=== PATIENT | female | born 1990 | race Caucasian/White ===

== ENCOUNTER 2017-09-25 20:03 | Inpatient (IN) | payer MEDICAID ==
[2017-09-25 20:41] LABS: Hematocrit 41 % (35-47); Hemoglobin 13.9 g/dl (12.0-16.0); Mean Corpuscular HGB Conc 34 g/dl (31-36); Mean Corpuscular Hemoglobin 31 pg (27-31); Mean Corpuscular Volume 90 fL (80-97); Mean Platelet Volume 9 um3 (7.4-10.4); Red Blood Count 4.57 10^6/ul (4.0-5.4); Red Cell Distribution Width 14 % (10.5-15); White Blood Count 11.8 10^3/ul (3.5-10.8)
[2017-09-25] MEDS ORDERED: OBEPIDURAL* 250 ML ONE (20:50)
[2017-09-25] MEDS ORDERED: Sodium Citrate/Citric Acid* 15 ML UDC PO PRN (21:50)
[2017-09-25] MEDS ORDERED: Famotidine TAB* 20 MG PO PRN (21:50)
[2017-09-25] MEDS ORDERED: EPHEDrine (Pressors)* 50 MG/ML VIAL IV PUSH PRN ×2 (21:50)
[2017-09-25] MEDS ORDERED: Phenylephrine IV* 40 MCG/ML 10 ML SYRINGE IV PUSH PRN ×2 (21:50)
[2017-09-25] MEDS ORDERED: OBEPIDURAL* 250 ML EPIDURAL SCH (22:00)
[2017-09-26] MEDS ORDERED: Oxytocin in LR* 20 UNITS/1,000 ML BAG IVPB ONE (05:29)
[2017-09-26] MEDS ORDERED: Dibucaine 1% 28.35 GM TUBE PR PRN (06:38)
[2017-09-26] MEDS ORDERED: Witch Hazel PAD* JAR TOPICAL PRN (06:38)
[2017-09-26] MEDS ORDERED: Glycerin ADULT SUPP PR PRN (06:38)
[2017-09-26] MEDS ORDERED: Oxytocin in LR* 20 UNITS/1,000 ML BAG IVPB SCH (07:00)
[2017-09-26] MEDS ORDERED: Simethicone TAB* 80 MG TAB.CHEW PO SCH (08:30)
[2017-09-26] MEDS: Docusate CAP* 100 MG PO SCH ×3 (13:08→21:37)
[2017-09-26] MEDS: Ibuprofen TAB* 600 MG PO PRN ×2 (13:09→18:54)
[2017-09-26] MEDS: Acetaminophen TAB* 325 MG PO PRN (21:36)
[2017-09-27] MEDS: Ibuprofen TAB* 600 MG PO PRN ×3 (00:59→20:47)
[2017-09-27] MEDS: Acetaminophen TAB* 325 MG PO PRN ×2 (04:15→12:38)
[2017-09-27] MEDS: Docusate CAP* 100 MG PO SCH ×3 (08:04→20:42)
[2017-09-27 08:09] LABS: Hematocrit 31 % (35-47); Hemoglobin 10.6 g/dl (12.0-16.0); Mean Corpuscular HGB Conc 35 g/dl (31-36); Mean Corpuscular Hemoglobin 32 pg (27-31); Mean Corpuscular Volume 91 fL (80-97); Mean Platelet Volume 9 um3 (7.4-10.4); Red Blood Count 3.35 10^6/ul (4.0-5.4); Red Cell Distribution Width 14 % (10.5-15); White Blood Count 9.1 10^3/ul (3.5-10.8)
[2017-09-27] MEDS ORDERED: Ferrous Gluconate TAB* 324 MG TAB PO SCH (09:00)
[2017-09-28] MEDS: Acetaminophen TAB* 325 MG PO PRN (02:14)
[2017-09-28 07:52] VITALS: BP 113/77
[2017-09-28] MEDS: Docusate CAP* 100 MG PO SCH (08:29)
[2017-09-28] MEDS: Ibuprofen TAB* 600 MG PO PRN (08:29)
== END 2017-09-28 10:15 | disposition home or self-care (01) | DRG 560 ==
LOC: MCHOBOUT 20:03 → MCHOB 20:35
PROVIDERS: ADMIT Midwife; ATTEND Midwife
PROC: 10E0XZZ Delivery of Products of Conception, External Approach (ICD-10-PCS; principal; 2017-09-26)
PROC: 0HQ9XZZ Repair Perineum Skin, External Approach (ICD-10-PCS; 2017-09-26)
DX: O99.334 Smoking (tobacco) complicating childbirth (principal); O99.344 Other mental disorders complicating childbirth; F17.210 Nicotine dependence, cigarettes, uncomplicated; O70.0 First degree perineal laceration during delivery; O69.81X0 Labor and delivery complicated by cord around neck, without compression, not applicable or unspecified; F41.8 Other specified anxiety disorders; O77.0 Labor and delivery complicated by meconium in amniotic fluid; Z3A.40 40 weeks gestation of pregnancy; Z37.0 Single live birth
CPT/HCPCS: 36415; 85025; 85027; 86850; 86900; 86901; A9270-GY

== ENCOUNTER 2019-07-28 13:23 | Emergency (ER) | payer OTHER ==
[2019-07-28 13:33] VITALS: BP 104/69
--- NOTE | 2019-07-28 13:51 | UC ---
Respiratory Complaint HPI - HPI Summary HPI Summary: She has had about a week of upper respiratory tract symptoms. Now she is mostly coughing which is productive. She is a smoker - History of Current Complaint Chief Complaint: UCRespiratory Stated Complaint: COUGH, AND SORE THROAT Time Seen by Provider: 07/28/19 13:35 Hx Obtained From: Patient Hx Last Menstrual Period: current Onset/Duration: Gradual Onset Timing: Constant Severity Initially: Mild Severity Currently: Moderate Pain Intensity: 7 Character: Cough: Productive Aggravating Factors: Nothing Alleviating Factors: Nothing Associated Signs And Symptoms: Positive: URI, Nasal Congestion. Negative: Dyspnea, Fever - Allergies/Home Medications Allergies/Adverse Reactions: Allergies Allergy/AdvReac Type Severity Reaction Status Date / Time sulfamethoxazole Allergy Hives/Diff. Verified 07/28/19 13:34 [From Bactrim] Breathing/I tching trimethoprim [From Bactrim] Allergy Hives/Diff. Verified 07/28/19 13:34 Breathing/I tching Home Medications: Home Medications NK [No Home Medications Reported] 07/28/19 [History Confirmed 07/28/19] PMH/Surg Hx/FS Hx/Imm Hx Previously Healthy: Yes - Surgical History Surgical History: None - Social History Alcohol Use: Occasionally Substance Use Type: None Smoking Status (MU): Current Some Day Smoker Type: Cigarettes Length of Time of Smoking/Using Tobacco: years Have You Smoked in the Last Year: No - Immunization History Most Recent Influenza Vaccination: none Most Recent Pneumonia Vaccination: none Review of Systems All Other Systems Reviewed And Are Negative: Yes Constitutional: Positive: Fever, Chills Skin: Positive: Rash Eyes: Positive: Negative ENT: Positive: Sore Throat - mild, Nasal Discharge Respiratory: Positive: Cough Cardiovascular: Positive: Negative Gastrointestinal: Positive: Negative Physical Exam - Summary Physical Exam Summary: She is nontoxic in appearance with stable vital signs. Triage Information Reviewed: Yes Appearance: Well-Appearing Vital Signs: Initial Vital Signs Temp 98.2 F 07/28/19 13:29 Pulse 93 07/28/19 13:29 Resp 16 07/28/19 13:29 BP 104/69 07/28/19 13:29 Pulse Ox 100 07/28/19 13:29 Vital Signs Reviewed: Yes Eyes: Positive: Conjunctiva Clear ENT: Positive: Pharynx normal, Nasal congestion, TMs normal. Negative: Pharyngeal erythema, TM bulging, TM dull, TM red Neck: Positive: Supple, Nontender, No Lymphadenopathy Respiratory: Positive: Crackles Cardiovascular: Positive: RRR Abdominal Exam: Normal Skin: Positive: Rashes - She has erythematous macular papular rash sparsely Respiratory Course/Dx - Course Course Of Treatment: This is likely a viral URI which is turning into a bronchitis in a smoker. That reason I will treat her with antibiotics. The rash looks to be an allergic reaction I recommended Benadryl. She has been using some over-the- counter decongestants and I recommended she stop them. - Differential Dx/Diagnosis Provider Diagnosis: Bronchitis Discharge ED - Sign-Out/Discharge Documenting (check all that apply): Patient Departure All imaging exams completed and their final reports reviewed: No Studies - Discharge Plan Condition: Stable Disposition: HOME Patient Education Materials: Acute Bronchitis (ED) Referrals: No Primary Care Phys,NOPCP [Primary Care Provider] - - Billing Disposition and Condition Condition: STABLE Disposition: Home
== END 2019-07-28 14:26 | disposition home or self-care (01) ==
LOC: UCEAST 13:23
DX: J40 Bronchitis, not specified as acute or chronic (principal); F17.210 Nicotine dependence, cigarettes, uncomplicated; Z88.2 Allergy status to sulfonamides
CPT/HCPCS: 99212; G0463

== ENCOUNTER 2020-10-31 21:09 | Inpatient (IN) ==
[2020-10-31] MEDS ORDERED: Buffered Lidocaine 1% SYRIN 1 ml INTRADERM ONE (21:26)
[2020-10-31] MEDS ORDERED: Lactated Ringers 1000 ml BAG 1,000 ML IV ONE ×2 (21:26→22:38)
[2020-10-31 21:37] LABS: ABS Basophils 0.1 10^3/ul (0-0.2); ABS Eosinophils 0.1 10^3/ul (0-0.6); ABS Lymphocytes 1.9 10^3/ul (1.0-4.8); ABS Monocytes 0.7 10^3/ul (0-0.8); ABS Neutrophils 9.3 10^3/ul (1.5-7.7); Eosinophil % 0.4 %; Hematocrit 40 % (35-47); Hemoglobin 13.4 g/dL (12.0-16.0); Lymphocyte % 15.9 %; Mean Corpuscular HGB Conc 34 g/dL (31-36); Mean Corpuscular Hemoglobin 31 pg (27-31); Mean Corpuscular Volume 93 fL (80-97); Mean Platelet Volume 9.6 fL (7.4-10.4); Platelet Count 165 10^3/uL (150-450); Red Blood Count 4.31 10^6 /uL (3.70-4.87); Red Cell Distribution Width 14 % (10-15); White Blood Count 12.1 10^3/uL (3.5-10.8)
[2020-10-31] MEDS ORDERED: OBEPIDURAL 250 ML EPIDURAL ONE (21:50)
[2020-10-31] MEDS ORDERED: Lactated Ringers 1000 ml BAG 1,000 ML IV SCH ×3 (22:00→23:45)
[2020-10-31] MEDS ORDERED: fentaNYL 100 mcg/2 ml 50 MCG/ML VIAL ONE (22:04)
[2020-10-31] MEDS ORDERED: Sodium Citrate/Citric Acid LIQ 15 ML UDC PO PRN (22:38)
[2020-10-31] MEDS ORDERED: Phenylephrine 40 mcg/mL 10mL (400mcg) SYRINGE IV PUSH PRN ×2 (22:38)
[2020-10-31] MEDS ORDERED: EPHEDrine (Pressors) 50 MG/ML VIAL IV PUSH PRN (22:38)
[2020-10-31] MEDS ORDERED: OBEPIDURAL 250 ML EPIDURAL SCH (23:00)
[2020-10-31] MEDS ORDERED: Oxytocin in LR 20 UNITS/1,000 ML BAG IVPB ONE (23:35)
[2020-10-31] MEDS ORDERED: Witch Hazel PAD JAR TOPICAL PRN (23:44)
[2020-10-31] MEDS ORDERED: Glycerin ADULT 2.4 gm SUPP PR PRN (23:44)
[2020-10-31] MEDS ORDERED: Dibucaine 1% OINT 28.35 GM TUBE PR PRN (23:44)
[2020-10-31] MEDS ORDERED: Oxytocin in LR 20 UNITS/1,000 ML BAG IVPB SCH (23:45)
[2020-10-31 23:52] LABS: Urine Benzodiazepine Screen None Detected (None Detect); Urine Cannabinoids Screen None Detected (None Detect); Urine Opiates Screen None Detected (None Detect)
[2020-11-01 08:00] LABS: ABS Lymphocytes 1.3 10^3/ul (1.0-4.8); ABS Monocytes 0.6 10^3/ul (0-0.8); ABS Neutrophils 10.2 10^3/ul (1.5-7.7); Eosinophil % 0.2 %; Hematocrit 35 % (35-47); Hemoglobin 12.2 g/dL (12.0-16.0); Lymphocyte % 10.4 %; Mean Corpuscular HGB Conc 35 g/dL (31-36); Mean Corpuscular Hemoglobin 32 pg (27-31); Mean Corpuscular Volume 92 fL (80-97); Platelet Count 155 10^3/uL (150-450); Red Blood Count 3.83 10^6 /uL (3.70-4.87); Red Cell Distribution Width 14 % (10-15); White Blood Count 12.1 10^3/uL (3.5-10.8)
[2020-11-02 07:57] VITALS: BP 111/80
== END 2020-11-02 10:27 | disposition home or self-care (01) | DRG 560 ==
LOC: MCHOBOUT 21:09 → MCHOB 21:26
PROVIDERS: ADMIT Midwife; ATTEND Midwife